=== PATIENT | female | born 1970 | race Caucasian/White ===

== ENCOUNTER 2017-02-06 14:15 | Emergency (ER) | payer OTHER ==
[~2017-02-06] VITALS: Ht 167.6 cm; Wt 80.0 kg
[2017-02-06] MEDS ORDERED: ceFAZolin 2 GM PREMIX 50 ML ONE (14:22)
[2017-02-06] MEDS ORDERED: DIPHTH/TETANUS/ACEL PERTUSSIS (BOOSTER) 0.5 ML VIAL/PFS IM ONE (14:23)
[2017-02-06 14:47] LABS: I-STAT POTASSIUM 4.4 MMOL/L (3.5-4.9)
[2017-02-06 14:48] LABS: AUTOMATED NEUTROPHIL # 5.3 TH/MM3 (1.8-7.7); BASOPHIL # 0.1 TH/MM3 (0-0.2); EOSINOPHIL # 0.4 TH/MM3 (0-0.4); EOSINOPHIL % 3.7 % (0.0-4.0); HEMATOCRIT 38.2 % (35.0-46.0); HEMO FLAGS DIFF FINAL; LYMPH % 33.1 % (9.0-44.0); LYMPHOCYTE # 3.3 TH/MM3 (1.0-4.8); MEAN CELL VOLUME 93.2 FL (80.0-100.0); MEAN CORPUSCULAR HEMOGLOBIN 31.2 PG (27.0-34.0); MEAN CORPUSCULAR HGB CONC 33.4 % (32.0-36.0); NEUT % 53.2 % (16.0-70.0); PLATELET COUNT 330 TH/MM3 (150-450); RED BLOOD COUNT 4.09 MIL/MM3 (4.00-5.30); RED CELL DISTRIBUTION WIDTH 13.5 % (11.6-17.2)
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
[2017-02-06] MEDS ORDERED: IOHEXOL 350 MG/ML 10 ML VIAL (for RAD DIAG) IV ONE (14:53)
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
[2017-02-06 15:08] VITALS: BP 128/81; PULSE 96; RESP 18; TEMP 97.9; O2SAT 100
[2017-02-06 15:17] VITALS: BP 128/81; PULSE 81; RESP 18; TEMP 97.9; O2SAT 100
[2017-02-06 15:19] LABS: APTT (PATIENT) 21.1 SEC (24.3-30.1); PROTHROMBIN TIME - PATIENT 11.1 SEC (9.8-11.6)
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
[2017-02-06 15:32] VITALS: BP 122/56; PULSE 79; RESP 18; TEMP 97.9; O2SAT 100
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
[2017-02-06] MEDS ORDERED: M2 M100C PO (15:59)
[2017-02-06] MEDS ORDERED: VITATAB11 PO (15:59)
[2017-02-06] MEDS ORDERED: ASPI-110 PO (15:59)
[2017-02-06] MEDS ORDERED: PRIL20CA9 PO (15:59)
[2017-02-06] MEDS ORDERED: ZYRT10CA PO (15:59)
[2017-02-06] MEDS ORDERED: BUSP5TAB PO (15:59)
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
[2017-02-06 17:45] VITALS: BP 83/50; PULSE 78; RESP 16; O2SAT 99
[2017-02-06] MEDS ORDERED: ACETAMINOPHEN/HYDROcodone 325 MG/5 MG TAB PO ONE (17:45)
[2017-02-06] MEDS ORDERED: ACETAMINOPHEN 325 MG TAB PO ONE (17:45)
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
== END 2017-02-06 18:52 | disposition home or self-care (01) ==
LOC: NEPI 14:15 → EDBD 14:15 → NEPE 18:52
DX: S00.03XA Contusion of scalp, initial encounter (principal); S30.811A Abrasion of abdominal wall, initial encounter; R10.9 Unspecified abdominal pain; M25.511 Pain in right shoulder; M25.551 Pain in right hip; E78.00 Pure hypercholesterolemia, unspecified; Z86.73 Personal history of transient ischemic attack (TIA), and cerebral infarction without residual deficits; F17.210 Nicotine dependence, cigarettes, uncomplicated; V29.60XA Unspecified motorcycle rider injured in collision with unspecified motor vehicles in traffic accident, initial encounter; Y93.89 Activity, other specified; Y92.410 Unspecified street and highway as the place of occurrence of the external cause; Y99.9 Unspecified external cause status
CPT/HCPCS: 70450; 71010; 72125; 72170; 73030; 73502; 74177; 82435; 82565; 82947; 84132; 84295; 84520; 85025; 85610; 85730; 86850; 86900; 86901; 96374; 99285; 99291; J0690; Q9967; 90715; G0390